=== PATIENT | female | born 1945 | race Caucasian/White ===

== ENCOUNTER → 2021-04-01 | Outpatient (CLI) | payer MEDICARE, OTHER ==
[~2021-04-01] MED LIST: ALL DAY ALLERGY10 M3 PO; ALPRAZOLAM0.5 MG PO; CARDIZEM CD120 MG PO; DILTIAZEM 24HR180 M1 PO; DYAZIDE 37.5/251 EA PO; GLUCOPHAGE500 MG PO; LIPITOR TAB 2020 MG PO; LOPRESSOR 50 MG50 MG PO; LOPRESSOR50 MG PO; NORCO 5-325 TA1 EACH PO; PREDNISONE10 MG PO; ROPINIROLE HCL0.5 MG PO; SOMA350 MG PO; SYNTHROID25 MCG PO; TYLENOL W/CODEIN1 E1 PO; VITAMIN D250000 UNIT PO
== END ==
LOC: RAD 11:08
DX: R07.81 Pleurodynia (principal); M51.34 Other intervertebral disc degeneration, thoracic region; W19.XXXA Unspecified fall, initial encounter
CPT/HCPCS: 71101; 72070

== ENCOUNTER → 2021-04-07 | Outpatient (CLI) | payer MEDICARE, OTHER | LOC: HEART 5 14:47 | DX: R55 Syncope and collapse (principal) ==

== ENCOUNTER → 2021-09-21 | Outpatient (CLI) | payer MEDICARE, OTHER ==
[~2021-09-21] VITALS: Ht 149.9 cm; Wt 115.7 kg
== END ==
LOC: OPSV 13:34
DX: M81.0 Age-related osteoporosis without current pathological fracture (principal)
CPT/HCPCS: 96365; J3489

== ENCOUNTER → 2021-11-01 | Outpatient (CLI) | payer MEDICARE | LOC: KOH-I 09:36 | DX: M43.16 Spondylolisthesis, lumbar region (principal); R93.7 Abnormal findings on diagnostic imaging of other parts of musculoskeletal system | CPT/HCPCS: 72070; 72114 ==